=== PATIENT | female | born 1950 | race Caucasian/White ===

== ENCOUNTER → 2020-08-10 17:51 | Outpatient (CLI) | payer MEDICARE, OTHER, SELFPAY ==
--- NOTE | ~2020-08-10 | MM_ITS ---
EXAMINATION: MM scrn johann implant BI w tessa HISTORY: Screening mammogram TECHNIQUE: Craniocaudal and mediolateral oblique 3-D tomosynthesis images with implant displacement a nd synthetic 2-D images were generated. Craniocaudal and mediolateral oblique views of the breasts wi thout implant displacement were obtained using full field digital mammography. CAD analysis was submi tted and interpreted. COMPARISON: 05/18/2019, 04/18/2018, 03/29/2017 BREAST PARENCHYMAL COMPOSITION: There are scattered areas of fibroglandular density. FINDINGS: There is no evidence of suspicious mass, calcification, or architectural distortion to sugg est malignancy in either breast. There has been no suspicious interval change. IMPRESSION: 1. No mammographic evidence of malignancy. 2. Recommend routine screening mammography in one year. BI-RADS Category 1: Negative Reviewed, dictated and finalized at location A.
--- NOTE | ~2020-08-10 | DEXA_ITS ---
Bone Density Report Name: Mary So Age: 70 Sex: Female Ethnicity: White Date of : 1950 Indication: osteopenia; parental hip fracture; postmenopausal Referring Provider: NEGRO BALL Study: Bone densitometry was performed. Exam Date: August 10, 2020 Accession number: [id number] Bone Density: Region BMD T-score Z-score Classification AP Spine (L1-L4) 0.834 -1.9 0.2 Osteopenia Femoral Neck (Left) 0.663 -1.7 0.1 Osteopenia Total Hip (Left) 0.792 -1.2 0.3 Osteopenia Femoral Neck (Right) 0.670 -1.6 0.2 Osteopenia Total Hip (Right) 0.814 -1.1 0.5 Osteopenia Total Hip Mean 0.803 -1.2 0.4 Osteopenia World Health Organization criteria for BMD impression classify patients as: Normal (T-score at or above -1.0), Osteopenia (T-score between -1.0 and -2.5), or Osteoporosis (T-score at or below -2.5). 10-year Fracture Risk(1): Major Osteoporotic Fracture 16% Hip Fracture 3.7% Reported Risk Factors: [place] (), Neck BMD=0.670, BMI=23.3, parental fracture (1) FRAX(R) Version 3.08. Fracture probability calculated for an untreated patient. Fracture probability may be lower if the patient has received treatment. Previous Exams: Region Exam Age BMD T-score BMD Change BMD Change Date g/cm2 vs Baseline vs Previous AP Spine(L1-L4) 08/10/2020 70 0.834 -1.9 -0.003 0.004 05/17/2018 68 0.830 -2.0 -0.006 -0.010 02/17/2014 63 0.840 -1.9 0.003 -0.003 10/29/2011 61 0.843 -1.9 0.006 -0.010 08/29/2009 59 0.852 -1.8 0.016 0.002 05/31/2008 58 0.850 -1.8 0.013 0.017 08/03/2005 55 0.833 -1.9 -0.004 -0.004 07/21/2003 53 0.837 -1.9 Total Hip(Left) 08/10/2020 70 0.792 -1.2 0.040 0.017 05/17/2018 68 0.775 -1.4 0.023 -0.016 02/17/2014 63 0.792 -1.2 0.040 0.035* 10/29/2011 61 0.757 -1.5 0.005 -0.005 08/29/2009 59 0.761 -1.5 0.010 0.003 05/31/2008 58 0.759 -1.5 0.007 -0.001 08/03/2005 55 0.760 -1.5 0.008 0.008 07/21/2003 53 0.752 -1.6 Total Hip(Right) 08/10/2020 70 0.814 -1.1 0.060 0.032* 05/17/2018 68 0.781 -1.3 0.027 -0.039* 02/17/2014 63 0.820 -1.0 0.066 0.059* 10/29/2011 61 0.761 -1.5 0.007 -0.009 08/29/2009 59 0.770 -1.4 0.016 0.009 05/31/2008 58 0.761 -1.5 0.007 -0.046*
== END ==
PROVIDERS: PCP Family Medicine Sports Medicine; Visit Provider Obstetrics & Gynecology
DX: Z12.31 Encounter for screening mammogram for malignant neoplasm of breast (principal); Z78.0 Asymptomatic menopausal state; M85.88 Other specified disorders of bone density and structure, other site; M85.852 Other specified disorders of bone density and structure, left thigh; M85.851 Other specified disorders of bone density and structure, right thigh
CPT/HCPCS: 77063; 77067; 77080

== ENCOUNTER → 2021-11-24 12:40 | Outpatient (CLI) | payer MEDICARE, SELFPAY ==
--- NOTE | ~2021-11-24 | MM_ITS ---
EXAMINATION: MM scrn johann implant BI w tessa HISTORY: Screening mammogram TECHNIQUE: Craniocaudal and mediolateral oblique 3-D tomosynthesis images with implant displacement a nd synthetic 2-D images were generated. Craniocaudal and mediolateral oblique views of the breasts wi thout implant displacement were obtained using full field digital mammography. CAD analysis was submi tted and interpreted. COMPARISON: Comparison to multiple prior studies sequentially, with oldest reviewed study dated 02/18. BREAST PARENCHYMAL COMPOSITION: The breasts are heterogeneously dense, which may obscure small masses . FINDINGS: There is no evidence of suspicious mass, calcification, or architectural distortion to sugg est malignancy in either breast. There has been no suspicious interval change. IMPRESSION: 1. No mammographic evidence of malignancy. 2. Recommend routine screening mammography in one year. BI-RADS Category 1: Negative Reviewed, dictated and finalized at location A.
== END ==
PROVIDERS: PCP Family Medicine Sports Medicine; Visit Provider Obstetrics & Gynecology
DX: Z12.31 Encounter for screening mammogram for malignant neoplasm of breast (principal)
CPT/HCPCS: 77063; 77067

== ENCOUNTER → 2023-02-27 13:37 | Outpatient (CLI) | payer MEDICARE, SELFPAY ==
--- NOTE | ~2023-02-27 | MM_ITS ---
EXAMINATION: MM scrn johann implant BI w tessa HISTORY: Screening mammogram TECHNIQUE: Craniocaudal and mediolateral oblique 3-D tomosynthesis images with implant displacement a nd synthetic 2-D images were generated. Craniocaudal and mediolateral oblique views of the breasts wi thout implant displacement were obtained using full field digital mammography. CAD analysis was submi tted and interpreted. COMPARISON: 11/24/2021, 08/10/2020, 05/18/2019 bilateral implant screening mammogram examinations BREAST PARENCHYMAL COMPOSITION: The breasts are heterogeneously dense, which may obscure small masses . FINDINGS: Status post bilateral augmentation mammoplasty. There is no evidence of suspicious mass, ca lcification, or architectural distortion to suggest malignancy in either breast. There has been no leon spicious interval change. IMPRESSION: 1. No mammographic evidence of malignancy. 2. Recommend routine screening mammography in one year. BI-RADS Category 1: Negative Reviewed, dictated and finalized at location A.
== END ==
PROVIDERS: Visit Provider Obstetrics & Gynecology
DX: Z12.31 Encounter for screening mammogram for malignant neoplasm of breast (principal)
CPT/HCPCS: 77063; 77067

== ENCOUNTER 2023-04-29 10:19 | Emergency (ER) | payer MEDICARE, SELFPAY ==
[2023-04-29] VITALS (21 sets, daily range): BP systolic 103–144; BP diastolic 42–82; PULSE 67–85; RESP 16–23; TEMP 36.3; O2SAT 99–100
--- NOTE | ~2023-04-29 | CT_ITS ---
EXAMINATION: CT abdomen pelvis w con DATE: 04/29/2023 14:01 INDICATION: abdominal pain, urinary retention TECHNIQUE: Computed tomography (CT) of the abdomen and pelvis was performed with 100 mL Omnipaque-350 intravenous contrast. Automated exposure control and iterative reconstruction technique were employe d. The dose-length product was 251.30 mGy-cm. COMPARISON: None. FINDINGS: Lower thorax: Bilateral breast implants Liver: Diffuse fatty infiltration Biliary/Gallbladder: Gallbladder is normal. No bile duct dilation. Pancreas: No mass or duct dilation. Spleen: Normal. Adrenals:No mass. Kidneys: No suspicious mass, obstructing stone, or hydronephrosis. GI tract: Moderate distal esophageal and gastric wall edema. No small or large bowel dilation. Append ix not confidently identified. Mesentery/Peritoneum: No ascites, mass, or free air. Retroperitoneum: No mass. Pelvis: Normal uterus. The urinary bladder is decompressed by Tai catheter. 1.4 cm simple appearing left ovarian cyst. Soft Tissues: Soft tissues and body wall unremarkable. Bones: No acute osseous finding. IMPRESSION: Moderate esophagitis/gastritis. Otherwise no acute abdominopelvic process detected. Urinary bladder is decompressed by Tai catheter and therefore not well evaluated. Reviewed, dictated and finalized at location K. [employer]ATCH[employer]
--- NOTE | 2023-04-29 12:27 | ED.GENADULT ---
HPI - General Adult General Chief complaint: Unspecified Stated complaint: body aches, diffculty urinating. Time Seen by Provider: 04/29/23 12:21 History of Present Illness HPI narrative: Patient is a 73-year-old female with history of hemorrhoids here with generalized malaise, myalgias and difficulty urinating. She notes that over the last 4-5 days she has been experiencing diffuse myalgias, decreased appetite and decreased p.o. intake.. She denies any associated cough, congestion, diarrhea. She notes over the last 3 days she has developed difficulty urinating. She has been having some urine dribbling but unable to fully void. this morning she was unable to void entirely and this prompted her visit to the emergency department. She denies any prior history of urinary retention, does have a history of prior UTIs. She does have some associated suprapubic abdominal pain and distension. This does seem to be improving since insertion of Tai catheter. Of note she also has been experiencing a rash over her gluteal region. This has been present for about 2 weeks and it is tender in nature. She does not believe it is worsening. She does have a history of hemorrhoids and uses a cream and pads and believes that this may be causing this rash and irritation.. Related Data Home Medications Medication Instructions Recorded Confirmed lisinopril 10 1 tablet PO DAILY 06/18/20 06/30/20 mg-hydrochlorothiazide 12.5 mg tablet Allergies Allergy/AdvReac Type Severity Reaction Status Date / Time No Known Allergies Allergy Verified 04/29/23 12:25 Review of Systems Review of Systems: All systems reviewed & are unremarkable except as noted in HPI and below PMFSH Family History Family History Father Hypertension Family history of malignant neoplasm of cervix Patient's father is Sibling Carcinoma of colon Social History Social History Smoking status: Never smoker Second hand tobacco smoke exposure: No Alcohol intake: current Exam Narrative: GENERAL: Well-appearing, well-nourished, and in no acute distress. HEAD: Normocephalic, atraumatic. EYES: PERRLA and EOMI. ENT: Nares clear. Mucous membranes moist. NECK: Supple. CHEST: Clear to auscultation. No respiratory distress. HEART: Regular rate and rhythm. Normal peripheral pulses. ABDOMEN: Soft, Diffuse abdominal tenderness, suprapubic tenderness and fullness present. No rebound or guarding. EXTREMITIES: Normal range of motion. No edema. SKIN: Warm, dry, Erythematous and vesicular rash present over the right gluteus extending over the right labia NEURO: No focal deficits. Alert and oriented x3. PSYCH: Normal mood and affect. Course Course Emergency Course: Chart review performed. Patient here for body aches, abdominal pain and inability to void. Triage vitals grossly normal. One routine visit in our system from 2020, otherwise no visits. Patient seen evaluated, nontoxic appearing. Bedside postvoid bladder scan was greater than 900 mL. Tai catheter placed by nursing. Patient is having some generalized fatigue. Will do COVID, influenza, RSV. Given urinary retention will additionally do CT abdomen pelvis, basic lab work to evaluate for possible postobstructive JOBY as well as infection. IV fluids ordered for suspected dehydration given dark nixon color of urine. Lab work reviewed, no leukocytosis. Electrolytes within normal limits, no JOBY, lactic normal at 1.5, troponin negative, normal LFTs, UA negative for UTI, influenza, COVID, RSV negative. CT shows moderate esophagitis / gastritis, otherwise no acute process identified. Patient re-evaluated, feeling great at this time. She has had good urine output from the Tai catheter. IV fluids are infusing. I did discuss concern for possible shingles at her urogenital area.
[2023-04-29 13:02] LABS: Basophils Absolute Auto 0.1 K/mm3 (0.0-0.1); Basophils Percent Auto 0.7 % (0.2-1.2); Eosinophils Absolute Auto 0.1 K/mm3 (0-0.3); Eosinophils Percent Auto 1.6 % (0-4.4); Hematocrit 40.9 % (37.0-47.0); Hemoglobin 13.5 g/dL (12.0-15.0); Immature Granulocyte Absolute 0.01 K/mm3 (0.00-0.031); Immature Granulocyte Percent A 0.1 % (0-0.5); Lymphocytes Absolute Auto 2.19 K/mm3 (0.9-3.2); Lymphocytes Percent Auto 29.7 % (18.3-44.2); Mean Corpuscular Hemoglobin 30.1 pg (26-34); Mean Corpuscular Volume 91.1 fl (80-100); Mean Platelet Volume 10.4 fl (7.4-10.4); Monocytes Absolute Auto 0.7 K/mm3 (0.1-0.6); Monocytes Percent Auto 8.8 % (2.6-8.5); Neutrophils Absolute Auto 4.4 K/mm3 (1.3-6.7); Neutrophils Percent Auto 59.1 % (45.5-73.1); Platelet Count Result 224 k/mm3 (150-375); Red Blood Count 4.49 M/mm3 (4.2-5.4); Red Cell Distribution Width 12.8 % (11.5-14.5); White Blood Count 7.4 K/mm3 (4.5-10.0)
[2023-04-29 13:04] LABS: Appearance Urine Clear (Clear); Bilirubin Urine Negative (Negative); Blood Urine Negative (Negative); Color Urine Yellow (Yellow); Glucose Urine UA Negative (Negative); Ketones Urine Negative (Negative); Leukocyte Esterase Ur Negative LEU/UL (Negative); Nitrate Urine Negative (Negative); Protein Urine Negative (Negative); Specific Grav Ur 1.019 (1.001-1.035); Urobilinogen Urine 0.2 mg/dL (<2.0)
[2023-04-29 13:06] LABS: Add Urine Microscopic? NO
[2023-04-29 13:13] LABS: Lipase 189 U/L (23-300); Magnesium 2.3 mg/dL (1.6-2.3)
[2023-04-29 13:14] LABS: Lactic Acid Reflex 1.5 mmol/L (0.7-2.0)
[2023-04-29 13:24] LABS: Troponin I < 0.012 ng/mL (0.000-0.034)
[2023-04-29 13:29] LABS: Alanine Aminotransferase 17 U/L (6-35); Albumin Level 4.3 g/dL (3.5-5.1); Alkaline Phosphatase 48 U/L (38-126); Anion Gap 8 mmol/L (8-16); Aspartate Amino Transferase 29 U/L (14-36); Bilirubin,Total 0.9 mg/dL (0.2-1.3); Blood Urea Nitrogen 24 mg/dL (7-17); CRP < 0.5 mg/dL (<1.0); Calcium 9.5 mg/dL (8.4-10.2); Carbon Dioxide 30 mmol/L (22-30); Chloride 97 mmol/L (98-107); Estimated Glomerular Filt Rate > 60; Glucose 110 mg/dL (65-110); Potassium 4.4 mmol/L (3.4-5.0); Sodium 135 mmol/L (137-145)
[2023-04-29 13:37] LABS: Influenza A QL RT-PCR Negative (Negative); Influenza B QL RT-PCR Negative (Negative); RSV RNA, RT-PCR Negative (Negative); SARS-CoV-2 RNA PCR Negative (Negative)
--- NOTE | 2023-04-29 14:30 | ECG_ITS ---
Measurements Intervals [place] Rate: 72 P: 47 OK: 135 QRS: 31 QRSD: 83 T: 58 QT: 370 QTc: 406 Interpretive Statements SINUS RHYTHM NONSPECIFIC T-WAVE ABNORMALITY NO PREVIOUS ECG AVAILABLE FOR COMPARISON Electronically Signed On 04-30-2023 10:25:15 [employer] by Riki Mantilla M.D.
[2023-04-29] MEDS: SODIUM CHLORIDE 0.9% IV 1,000 ML 999 ML IV CONT (15:18)
[2023-04-29] MEDS: ACYCLOVIR 400 MG TABLET 800 MG PO (15:56)
== END 2023-04-29 16:34 | disposition home or self-care (01) ==
PROVIDERS: Emergency Provider Student in an Organized Health Care Education/Training Program
DX: B02.9 Zoster without complications (principal); R33.9 Retention of urine, unspecified; E86.0 Dehydration; Z20.822 Contact with and (suspected) exposure to COVID-19; K20.90 Esophagitis, unspecified without bleeding; K29.70 Gastritis, unspecified, without bleeding; R94.31 Abnormal electrocardiogram [ECG] [EKG]
CPT/HCPCS: 36415; 51702; 74177; 80053; 81003; 83605; 83690; 83735; 84484; 85025; 86140; 87637; 93005; 96360; 99284; A9270; J7030; Q9967

== ENCOUNTER 2024-02-29 10:31 | Outpatient (CLI) | payer MEDICARE, SELFPAY ==
--- NOTE | ~2024-02-29 | MM_ITS ---
EXAMINATION: MM scrn johann implant BI w tessa HISTORY: Screening mammogram TECHNIQUE: Craniocaudal and mediolateral oblique 3-D tomosynthesis images with implant displacement a nd synthetic 2-D images were generated. Craniocaudal and mediolateral oblique views of the breasts wi thout implant displacement were obtained using full field digital mammography. CAD analysis was submi tted and interpreted. COMPARISON: Comparison to multiple prior studies sequentially, with oldest reviewed study dated 12/2016. BREAST PARENCHYMAL COMPOSITION: Dense: The breasts are heterogeneously dense, which may obscure small masses FINDINGS: There is no evidence of suspicious mass, calcification, or architectural distortion to sugg est malignancy in either breast. There has been no suspicious interval change. IMPRESSION: 1. No mammographic evidence of malignancy. 2. Recommend routine screening mammography in one year. BI-RADS Category 1: Negative Reviewed, dictated and finalized at location B.
== END 2024-02-29 10:32 | disposition home or self-care (01) ==
PROVIDERS: PCP Family Medicine; Visit Provider Obstetrics & Gynecology
DX: Z12.31 Encounter for screening mammogram for malignant neoplasm of breast (principal)
CPT/HCPCS: 77063; 77067

== ENCOUNTER 2025-03-03 13:25 | Outpatient (CLI) | payer MEDICARE, SELFPAY ==
--- NOTE | ~2025-03-03 | MM_ITS ---
EXAMINATION: MM scrn johann implant BI w tessa HISTORY: Screening TECHNIQUE: Craniocaudal and mediolateral oblique 3-D tomosynthesis images were obtained and synthetic 2-D images were generated. CAD analysis was submitted and interpreted. Implant displacement views were obtained. COMPARISON: 11/24/2021 BREAST PARENCHYMAL COMPOSITION: The breasts are extremely dense, which lowers the sensitivity of mammography. FINDINGS: There is no evidence of suspicious mass, calcification, or architectural distortion to suggest malignancy. There has been no suspicious interval change. Bilateral breast implants IMPRESSION: 1. No mammographic evidence of malignancy. Recommend routine screening mammography in one year. BI-RADS Category 2: Benign finding(s) Reviewed, dictated and finalized at location Q. IMPRESSION: 1. No mammographic evidence of malignancy. Recommend routine screening mammogra phy in one year. BI-RADS Category 2: Benign finding(s)
== END 2025-03-03 13:26 | disposition home or self-care (01) ==
PROVIDERS: PCP Obstetrics & Gynecology; Visit Provider Family Medicine
DX: Z12.31 Encounter for screening mammogram for malignant neoplasm of breast (principal)
CPT/HCPCS: 77063; 77067